=== PATIENT | male | born 1955 | race Caucasian/White ===

== ENCOUNTER 2020-11-17 13:17 | Emergency (ER) | payer MEDICARE, OTHER ==
[~2020-11-17 13:17] MED LIST: ASPIR 8181 MG PO; ELIQUIS2.5 MG PO; FISH OIL 1,0001 EACH PO; GLUCOPHAGE500 MG PO; HYDROCHLOROTHIA25 MG PO; IPRAT-ALBUT 0.5-3 ML INH; LIPITOR TAB 2020 MG PO; PERCOCET 10-321 EACH PO; SYMBICORT 160-1 INHA INH; TOPROL XL25 MG PO; ZESTRIL40 MG PO
[2020-11-17 14:43] LABS: HEMOGLOBIN 15.2 gm/dl (14.0-17.5); RED BLOOD COUNT 5.3 M/UL (4.20-5.50); WHITE BLOOD COUNT 9.6 K/UL (4.5-11.0)
[2020-11-17 15:42] LABS: BUN/CREATININE RATIO 24 (0-10)
== END 2020-11-17 18:55 | disposition home or self-care (01) ==
LOC: ER1 13:17
PROVIDERS: Emergency Medicine
DX: R07.2 Precordial pain (principal); E11.9 Type 2 diabetes mellitus without complications; Z79.84 Long term (current) use of oral hypoglycemic drugs; Z91.012 Allergy to eggs
CPT/HCPCS: 71045; 80053; 82550; 82553; 83874; 83880; 84484; 85025; 93005; 99285